=== PATIENT | female | born 1975 | race Caucasian/White ===

== ENCOUNTER → 2017-05-30 | Day surgery (SDC) | payer OTHER ==
[~2017-05-30] VITALS: Ht 167.6 cm; Wt 94.3 kg
[~2017-05-30] MED LIST: FLOMAX0.4 MG PO; LEVOTHROID (S100 MCG PO; LEXAPRO20 MG PO; NORCO 5-325 TA1 EACH PO; PROAIR HFA8.5 GM INH; TOPROL XL 5050 MG PO; ZYLOPRIM300 MG PO
--- NOTE | ~2017-05-30 | OR ---
PATIENT'S NAME: BENJI ZEPEDA [facility] AGE: 41 Y [address] ROOM: [place] [address] LOCATION: [facility] ADMIT DATE: 05/30/2017 OR/Procedure Report DISCHARGE DATE: FAMILY PHYSICIAN: Kiet Pedroza MD ATTENDING PHYSICIAN: Raudel Avilez SURGEON: Raudel Avilez MD MANDREL MAKER: DATE OF PROCEDURE: 05/30/2017 PREOPERATIVE DIAGNOSES: 1. Symptomatic, 6 mm left proximal ureteral calculus. 2. Bilateral nephrolithiasis. POSTOPERATIVE DIAGNOSES: 1. Symptomatic, 6 mm left proximal ureteral calculus. 2. Bilateral nephrolithiasis. PROCEDURES PERFORMED: 1. Cystoscopy and retrograde (continuous infusion). 2. Left ureteral stent placement. 3. Left extracorporeal shock wave lithotripsy. ANESTHESIA: Sedation. INDICATION: This is a 41-year-old lady who had presented approximately 8 days ago with severe left flank pain. Having a past history of stone disease, she had an idea what it was. She had a CT scan done. She had a 6 mm left proximal stone. She presents today for intervention. Upon review, I had removed the stone in 2010. It was 100% uric acid. She had her last stone intervention sometime in 2013. She tells me she did pass a stone spontaneously. DESCRIPTION OF PROCEDURE: Having obtained her informed consent, the patient is taken to the cystoscopy suite first. She is prepped and draped sterilely and in lithotomy position. IV sedation is administered. The 21-Turkmen cystoscope is assembled and guided into the urethra. The course of the urethra is unremarkable. The bladder itself demonstrates some yellow crystals consistent with her past history. Bladder examination is confirmed with a 70- degree lens. I did not initially use contrast. Hopefully, there is enough calcium component that we will be able to localize. I slid a guidewire up. It bumps against an obstruction between L2 and L3. I manipulated the wire beyond. You can actually see a density there. There is a gush of retained fluid and PATIENT'S NAME: BENJI ZEPEDA [facility] AGE: 41 Y [address] ROOM: [place] [address] LOCATION: [facility] ADMIT DATE: 05/30/2017 OR/Procedure Report DISCHARGE DATE: FAMILY PHYSICIAN: Kiet Pedroza MD ATTENDING PHYSICIAN: Raudel Avilez debris once the wire gets past. If we move the stone up, it is going to be difficult to localize it. I think, with contrast infusion, we can treat it right where it is, and it will stay in position. The other choice would be to stent her and bring her back for ureteroscopy. I slid an open-ended catheter to the level of the stone. Contrast is instilled. The stone outlines nicely. In fact, the ureter funnels down to it, and it localizes nicely. I, therefore, opted to go ahead and place a stent, leave the ureteral catheter in position, and use continuous contrast instillation for localization. The guidewire is replaced. Over that, I passed a 4.8 Multi-Link stent. We have a nice level of placement cystoscopically and fluoroscopically. I then passed a ureteral catheter to the middle third. Contrast is instilled. The stone outlines nicely. The retrograde catheter is secured to a Marques catheter. The patient is moved to the lithotripsy suite. The stone is brought in the second focal point ellipsoid, and fragmentation is begun. I injected contrast periodically to make sure we are staying in good position. As we progressed, the contrast appeared to drain distally rather than being held up at the level of the stone. The stone appeared to fragment nicely. After 3000 impulses at a maximum kV of 26, the case is concluded. The Marques catheter and ureteral catheter are removed. The stent remains in good position. The patient tolerated the procedure well. Blood loss is minimal. No specimens are sent. The patient returned to the outpatient recovery area awake and in stable condition. RAUDEL AVILEZ MD [facility]/modl /[id number] CC: MD Edmond Haynes MD d: 05/30/17 1317 t: 06/06/17 1252, OPERATIVE SUMMARY
== END | disposition disaster alternative care site (69) ==
LOC: GSDC 07:00
PROC: 0TF7XZZ Fragmentation in Left Ureter, External Approach (ICD-10-PCS; principal; 2017-05-30)
PROC: 0T778DZ Dilation of Left Ureter with Intraluminal Device, Via Natural or Artificial Opening Endoscopic (ICD-10-PCS; 2017-05-30)
PROC: BT1FZZZ Fluoroscopy of Left Kidney, Ureter and Bladder (ICD-10-PCS; 2017-05-30)
DX: N20.2 Calculus of kidney with calculus of ureter (principal); F41.9 Anxiety disorder, unspecified; F32.9 Major depressive disorder, single episode, unspecified; I10 Essential (primary) hypertension; J45.909 Unspecified asthma, uncomplicated; E03.9 Hypothyroidism, unspecified; Z98.890 Other specified postprocedural states; Z79.899 Other long term (current) drug therapy; Z88.1 Allergy status to other antibiotic agents; Z88.5 Allergy status to narcotic agent
CPT/HCPCS: C1769; C2617; J0295; J2001; J7030; J7040

== ENCOUNTER → 2017-06-07 | Day surgery (SDC) | payer OTHER ==
[~2017-06-07] VITALS: Ht 167.6 cm; Wt 94.0 kg
--- NOTE | ~2017-06-07 | OR ---
PATIENT'S NAME: BENJI ZEPEDA [facility] AGE: 41 Y [address] ROOM: [place] [address] [place] [facility] [place]: 06/07/2017 OR/Procedure Report DISCHARGE DATE: FAMILY PHYSICIAN: Kiet Pedroza MD ATTENDING PHYSICIAN: Edmond Ching SURGEON: Edmond Ching MD [employer]: DATE OF PROCEDURE: 06/07/2017 PREOPERATIVE DIAGNOSIS: Menorrhagia. POSTOPERATIVE DIAGNOSIS: Menorrhagia with endometriosis. PROCEDURE: Robotic-assisted laparoscopic hysterectomy with bilateral salpingectomy and cauterization of endometriotic lesion. ANESTHESIA: Paula, general. ESTIMATED BLOOD LOSS: 30 mL. COMPLICATIONS: None. DISPOSITION: The patient to recovery room. DESCRIPTION OF PROCEDURE: The patient was brought to the OR and prepped and draped in routine fashion in dorsal lithotomy position. A 4 cup 8 cm BILLY catheter was placed and secured without complication. Marques catheter was placed and secured. I then changed gloves and went to the abdominal portion of the procedure. An infraumbilical incision was made with passage of an 8-mm port without complication. CO2 was insufflated and the patient was then placed in Trendelenburg. I did not see any incidental injury. I then proceeded with placement of 8-mm ports in the left lower quadrant, left upper quadrant, and right lower quadrant under visualization with no incidental injuries. We then were able to dock the robot with bipolar on the left and monopolar scissors cut on the right. The right ovary had a small cyst, this appeared to be simple corpus luteum. The left tube and ovary were normal. I was able to see the right ureter peristalsing well, but the left ureter was not well seen, and the patient does have a stent in place because of stone. The left tube was removed. The left utero-ovarian ligament was cauterized and cold cut down to the left round ligament being cauterized and cold cut. I opened up the posterior leaflet of the broad ligament followed by the anterior leaflet of the broad ligament to displace both ureter and bladder. Uterine artery on the left was cauterized and cold cut. The right tube was removed. The right utero-ovarian ligament was cauterized and cold cut down to the right round ligament being cauterized and cold cut. I opened up the anterior PATIENT'S NAME: BENJI ZEPEDA [facility] AGE: 41 Y [address] ROOM: [place] [address] [place] [facility] [place]: 06/07/2017 OR/Procedure Report DISCHARGE DATE: FAMILY PHYSICIAN: Kiet Pedroza MD ATTENDING PHYSICIAN: Edmond Ching A leaflet to displace the bladder caudally followed by the posterior leaflet of the broad ligament to displace ureter caudally. Uterine artery on the right was cauterized and cold cut. I did have a small uterine artery on the right bleeding and the cautery was undertaken without any incident and with good hemostasis. We then filled the vaginal occluder and I began with a posterior colpotomy coming around bilaterally and then anteriorly. I did not see any further bleeding from the uterine artery. The uterus and tubes were removed into the vagina and we replaced the monopolar scissors cut with radha suture and suture was introduced, 0 Vicryl was used to reapproximate the vaginal cuff in the right angle in a ukoqkx-sy-lfbws fashion incorporating the anterior and posterior serosal surface of vagina and posterior peritoneal surface. The left lateral angle was reapproximated, again incorporating the anterior and posterior serosal surface of the vagina and the posterior peritoneal surface and again this was in a eilbmc-yt-qngws fashion. Two more sutures were placed to reapproximate the vagina, again in aqyldw-du-nwgab fashion using 0 Vicryl and we were able to include the anterior and posterior serosal surface of the vagina and the posterior peritoneum. The uterus was removed, vaginal integrity was checked and felt to be adequate. Marques catheter was removed. I was not able to see the left ureter, but again this is the ureter that has a stent placed. The right ureter was peristalsing normally with no evidence of dilatation. We did decrease the intraabdominal pressure to 6 for 10 seconds and saw no evidence of arterial bleeding or venous bleeding, so there was adequate hemostasis. The procedure was felt to be complete. All instruments removed. CO2 was exsufflated. I scrubbed back into the case after the robot had been de-docked, instruments had been removed, and CO2 was then insufflated, and I reapproximated all skin incisions with 4-0 Vicryl in subcuticular fashion. Again, the Marques catheter was discontinued and was draining clear urine. The patient was extubated and taken to recovery room without incident. MD ZENAIDA ANDERSON/smita /[id number] d: t: 06/08/17 0921, OPERATIVE SUMMARY
== END ==
LOC: GPOC 05-19 09:00 → GSDC 05-26 06:00
PROC: 0UT94ZZ Resection of Uterus, Percutaneous Endoscopic Approach (ICD-10-PCS; principal; 2017-06-07)
PROC: 0UTC4ZZ Resection of Cervix, Percutaneous Endoscopic Approach (ICD-10-PCS; 2017-06-07)
PROC: 0UB74ZZ Excision of Bilateral Fallopian Tubes, Percutaneous Endoscopic Approach (ICD-10-PCS; 2017-06-07)
DX: N80.0 Endometriosis of uterus (principal); N92.0 Excessive and frequent menstruation with regular cycle; I10 Essential (primary) hypertension; J45.909 Unspecified asthma, uncomplicated; Z98.890 Other specified postprocedural states; Z88.0 Allergy status to penicillin; E03.9 Hypothyroidism, unspecified; Z88.1 Allergy status to other antibiotic agents; Z88.6 Allergy status to analgesic agent; Z88.8 Allergy status to other drugs, medicaments and biological substances; Z79.899 Other long term (current) drug therapy; Z79.891 Long term (current) use of opiate analgesic
CPT/HCPCS: J0131; J0295; J1100; J2001; J2250; J2405; J3010; J7030; J7040; J7120